=== PATIENT | male | born 1935 | race Two or more races ===

== ENCOUNTER 2019-04-29 05:56 | Day surgery (SDC) | payer OTHER ==
[~2019-04-29 05:56] MED LIST: ABILIFY5 MG PO; ARICEPT5 MG PO; GLIMEPIRIDE4 MG; LANTUS; LEVOXYL50 MCG PO; TAMS0.4C PO; ZESTRIL10 M1 PO; ZOCOR40 MG PO
== END 2019-04-29 14:20 | disposition home or self-care (01) ==
LOC: CIR.AMB 05:56 → ADM 10:00 → CIR.AMB 14:20
DX: C67.2 Malignant neoplasm of lateral wall of bladder (principal)